=== PATIENT | male | born 1960 | race Caucasian/White ===

== ENCOUNTER 2021-12-13 19:00 | Emergency (ER) | payer SELFPAY ==
[~2021-12-13] VITALS: Ht 160 cm; Wt 62.6 kg
[2021-12-13 19:11] VITALS: BP 186/89
--- NOTE | 2021-12-13 19:56 | NUR ---
Blood for labwork drawn from left arm per phelbotomist. Patient tolerated well.
[2021-12-13 20:16] LABS: BASOPHILS % (AUTO) 0.3 % (0.0-2.0); EOSINOPHILS % (AUTO) 0.1 % (0.0-4.0); HEMATOCRIT 40.6 % (36-52); HEMOGLOBIN 13.3 g/dL (12.0-18.0); LYMPHOCYTES % (AUTO) 7.8 % (20.5-51.1); MEAN CORPUSCULAR HEMOGLOBIN 31 pg (27-31); MEAN CORPUSCULAR HGB CONC 33 g/dL (33-37); MEAN CORPUSCULAR VOLUME 94.9 fL (80-94); MONOCYTES % (AUTO) 7.5 % (1.7-9.3); NEUTROPHILS # (AUTO) 10.8 K/uL (1.8-7.7); NEUTROPHILS % (AUTO) 84.3 % (42.2-75.2); PLATELET COUNT (AUTO) 281 K/uL (140-450); RED BLOOD CELL COUNT(AUTO) 4.27 MIL/uL (4.20-6.10); RED CELL DISTRIBUTION WIDTH 13.9 % (11.6-13.7); WHITE BLOOD COUNT (AUTO) 12.8 K/uL (4.8-10.8)
[2021-12-13 20:33] LABS: PROTHROMBIN TIME 10.1 secs (10.8-13.4)
[2021-12-13 20:39] LABS: ALBUMIN 4.4 g/dL (3.4-5.0); ANION GAP 14.5 (8-16); CREATININE 1.1 mg/dL (0.6-1.3); POTASSIUM 4.5 mmol/L (3.5-5.1); TOTAL BILIRUBIN 0.6 mg/dL (0.0-1.0)
--- NOTE | 2021-12-13 22:24 | NUR ---
Dr. Remy examining patient.
--- NOTE | 2021-12-13 23:48 | NUR ---
Patient taken to chair A.
[2021-12-13] MEDS ORDERED: NAPR-54 PO (23:53)
[2021-12-13 23:59] VITALS: BP 152/78
== END 2021-12-13 23:59 | disposition home or self-care (01) ==
LOC: MED 19:00
DX: R07.89 Other chest pain (principal); M54.50 Low back pain, unspecified; Z79.899 Other long term (current) drug therapy; W14.XXXA Fall from tree, initial encounter; Y93.89 Activity, other specified; Y92.89 Other specified places as the place of occurrence of the external cause; Y99.8 Other external cause status
CPT/HCPCS: 36415; 71045; 80053; 83880; 84484; 85025; 85610; 85730; 93005; 99285